=== PATIENT | male | born 1980 | race Caucasian/White ===

== ENCOUNTER 2016-12-24 14:04 | Emergency (ER) | payer BC ==
[~2016-12-24] VITALS: Ht 180.3 cm; Wt 89.7 kg
[~2016-12-24 14:04] MED LIST: ASPCH81X PO; CLOP1TAB15 PO; METO25TA56 PO; NTRGSL/4 UT; XRL10 PO
[2016-12-24 14:10] VITALS: BP 130/88; PULSE 91; TEMP 36.5; O2SAT 97; Ht 180.3 cm; Wt 89.7 kg
[2016-12-24] MEDS ORDERED: PRED50TA PO (14:43)
--- NOTE | 2016-12-24 18:36 | EMERGENCY ROOM VISIT NOTE ---
ED Visit Note First contact with patient: 14:21 Chief Complaint: Hives. History of Present Illness: Mr. Blount is a 36-year-old white male who ambulates into the ED complaining of hives. Patient reports his hives started approximately 2 week ago. He reports he was started on Lipitor and feels that is the culprit of his hives. After he stopped the Lipitor he had resolution of his hives and when he started the Lipitor again the hives returned. He once again stopped the Lipitor in the hives resolved, but he reports the hives started again today without him restarting the Lipitor. Patient reports approximately 4 hours ago he started developing hives over most of his body including his chest, abdomen, groin, anterior neck and lips. Associated with his size he reports she's been extremely itchy. He did take Benadryl shortly after the hives erupted today and feels like all of his hives on his lips, neck and arms have resolved but he is still having some on his chest, abdomen and groin area. He has not identified any aggravating factors related to the hives. He denies any associated symptoms including sensations of throat swelling, shortness of breath, cough, wheezing, abdominal pain, nausea/vomiting. Review of Systems: As noted above in history of present illness. 8 body systems were reviewed and found to be negative as noted above. Past Medical History: Coronary artery disease, unspecified stomach disorder, ankylosing spondylitis, status post stent placement Current Medications: Medications Dose Route/Sig Max Daily Dose Days Date Category Nitrostat (Nitroglycerin) 0.4 Mg Tab 0.4 Mg UT PRN 11/26/16 Reported Lopressor (Metoprolol Tartrate) 25 Mg Tab 12.5 Mg PO BID 11/26/16 Reported Plavix (Clopidogrel Bisulfate) 75 Mg Tab 75 Mg PO DAILY 11/26/16 Reported Aspirin Chewable (Aspirin) 81 Mg Chew 81 Mg PO DAILY 11/26/16 Reported Allergies to Medications: Chantix, questionable Lipitor. Social History: Patient is currently employed; he feels safe in his home environment; he denies tobacco use and admits to alcohol use. Physical Examination: Vital Signs: Date Time Temp Pulse Resp B/P Pulse Ox O2 Delivery O2 Flow Rate FiO2 12/24/16 14:10 36.5 91 20 130/88 97 Room Air GENERAL: 36-year-old female in no acute distress, nontoxic-appearing, afebrile and hemodynamically stable. NEUROLOGICAL: Awake, alert and oriented to person, place and time. Answering questions appropriately and following commands. Normal gait. Good hand eye coordination. No focal motor sensory deficits. SKIN: Warm, dry and pink. Small amount of hives or noted over his chest and abdomen and back but none on his face, neck or upper extremities. HEENT: Atraumatic and normocephalic. No facial swelling or erythema. PERRLA. Sclera white and conjunctiva pink. No drainage from naris. Oral cavity moist and pink. Pharynx is nonerythematous or edematous. Airway is patent. Speech normal. No auditory or auscultatory stridor. No lymphadenopathy. Trachea midline. No jugular venous distention. THORAX: Lungs sounds are clear to auscultation and equal bilaterally with symmetrical chest wall. No wheezing, rales or rhonchi. No increased respiratory effort or rate. No crepitus, tenderness, subcutaneous air or deformities noted. HEART: Regular rate and rhythm. No gallops, rubs or murmurs are appreciated. ABDOMEN: Flat, soft and nontender. Positive bowel sounds in all quadrants. No guarding, rigidity or organomegaly. EXTREMITIES: Moves all extremities well on command and with purpose. All distal neurovascular statuses are intact and equal bilaterally. No calf tenderness or cords. ED Course: Patient is assessed as noted above. Patient reported subjectively he was feeling much better since his last dose of Benadryl. Patient was educated about tonight's findings and instructed on his treatment plan; he verbalizes understanding and agreement with this plan. Clinical Impression: Hives. Possible allergic reaction to Lipitor. Disposition: Patient discharged home in stable condition; prior to departure he subjectively reported he was still having itchy skin but was not having any sensations of throat swelling or shortness of breath/wheezing. Plan: Patient was prescribed prednisone 40 mg once a day for 5 days. Patient was encouraged to use [id number] Benadryl and Zantac until resolution of skin hives and itching. Patient was encouraged to follow-up with his primary care provider; he reports he has an appointment tomorrow morning, for follow-up care and treatment. Patient was encouraged return to the ED for worsening hives, sensations of throat swelling, shortness of breath/wheezing or any new/concerning symptoms.
== END 2016-12-24 14:40 | disposition home or self-care (01) ==
LOC: C.EDB 14:06 → C.EDD 14:40
DX: L50.9 Urticaria, unspecified (principal); I25.10 Atherosclerotic heart disease of native coronary artery without angina pectoris; Z87.19 Personal history of other diseases of the digestive system; Z79.899 Other long term (current) drug therapy; Z88.8 Allergy status to other drugs, medicaments and biological substances

== ENCOUNTER 2022-11-06 08:32 | Observation (INO) ==
[2022-11-06] MEDS ORDERED: fentaNYL citrate 100 MCG/2 ML VIAL IV STA (08:49)
[2022-11-06] MEDS ORDERED: ASPIRIN 81 MG CHEW PO STA (08:49)
--- NOTE | 2022-11-06 08:49 | Emergency Department Note ---
History of Present Illness General Chief complaint: Chest Pain Stated complaint: CHEST PAIN Time Seen by Provider: 11/06/22 08:40 History of Present Illness Maximum Pain Intensity: 6 This is a 42-year-old male with a history of SC in 2017 status post stent placement that presents to the emergency department via private vehicle with complaints of "chest pain". Patient notes substernal chest pain current pain 6/10 that developed this morning around 6 AM. Patient notes that this feels similar but also dissimilar to his previous SC. He notes that he was seen and treated in [place] as well as [place] with [facility] for the SC in 2017. 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 Patient denies any fevers, chills, nausea, vomiting, cough, trauma, injury, radiation of pain. Patient notes that nitro helped a little bit that he took this morning. He notes that he took 1 sublingual nitroglycerin every 5 minutes x 3. He also took baby aspirin this morning. He denies any anticoagulant or other antiplatelet use. Home Medications Medication Instructions Recorded Confirmed Type aspirin 81 mg tablet,delayed 81 mg PO DAILY 11/07/20 11/06/22 History release (David Low Dose Aspirin) Allergies Allergy/AdvReac Type Severity Reaction Status Date / Time atorvastatin [From Lipitor] Allergy Intermediate Hives Verified 11/07/20 15:31 shellfish derived Allergy Intermediate Itchy mouth Verified 11/07/20 15:31 varenicline AdvReac Intermediate "MADE ME Verified 11/07/20 15:31 FEEL AWFUL" Past Med/Surg History Medical History (Updated 11/06/22 @ 10:37 by JUAN JOSE Vera) Ankylosing spondylitis CAD (coronary artery disease) Dyslipidemia History of non-ST elevation myocardial infarction (NSTEMI) Statin intolerance Ulcerative colitis Surgical History H/O cardiac catheterization H/O hand surgery Social History Smoking Status: Former smoker Tobacco Type: Cigarettes Hx Alcohol Use: No Hx Substance Use: No Preferred Language: Irish Communication Ability: Effective Annual Giving Manager Required: No Beliefs That Will Affect Care: None Current Living Situation: Spouse Feels Safe at Home: Yes Assistive Devices: None Review of Systems A total of 10 systems reviewed and were otherwise negative Physical Exam Vital Signs Vital Signs - 24 hr 11/06/22 08:38 11/06/22 08:57 11/06/22 08:49 Temperature 36.4 C L Temperature Source Oral Pulse Rate 100 H 84 73 Pulse Rate from SpO2 Sensor 96 H Respiratory Rate 20 16 Respiratory Effort / Characteristics Non-Labored Spontaneous Respiratory Depth Normal Respiratory Pattern Regular Blood Pressure 122/79 119/90 Blood Pressure Mean 93 99 Pulse Oximetry 98 96 Oxygen Delivery Method Room Air Room Air Sepsis Recent Fever Within 48 Hours No Sepsis New/Unexplained Change in Mental Status N/A Sepsis Action Taken by Nursing No Action Required 11/06/22 08:49 Temperature Temperature Source Pulse Rate Pulse Rate from SpO2 Sensor Respiratory Rate Respiratory Effort / Characteristics Respiratory Depth Respiratory Pattern Blood Pressure Blood Pressure Mean Pulse Oximetry 96 Oxygen Delivery Method Room Air Sepsis Recent Fever Within 48 Hours Sepsis New/Unexplained Change in Mental Status Sepsis Action Taken by Nursing VITAL SIGNS - Vital signs and nursing notes were reviewed. Stable and afebrile. GENERAL - 42-year-old male appearing his stated age who is in no acute distress. Communicates well with provider and answers questions appropriately. SKIN - Without rashes. No meningeal or petechial rash. HEAD - NC/AT. EYES - PERRL with EOMI bilaterally. Sclera anicteric. EARS - No deformities of external structures noted on gross examination bilaterally. NOSE - Midline and without cyanosis. No epistaxis or purulent drainage noted. MOUTH/OROPHARYNX - Without perioral cyanosis. NECK - Neck with FROM. No nuchal rigidity. LUNGS - Chest wall symmetric without accessory muscle use, intercostals retractions, or central cyanosis. Normal vesicular breath sounds CTA B/L. No wheezes, rales, or rhonchi appreciated. CARDIAC - RRR with S1/S2. No murmur, rubs, or gallops appreciated. ABDOMEN - Abdominal contour normal without pulsations or visible masses. BS normoactive all four quadrants. No tenderness, palpable masses, hepatosplenomegaly, or ascites noted. EXTREMITIES - No clubbing or peripheral cyanosis. +5/5 strength noted in UE/LE bilaterally. NEUROLOGIC - Cranial nerves II through XII grossly intact. PSYCH - A&Ox3 and cooperates fully with examiner. Pt is very pleasant and interacts well with examiner. Course Administered Medications Discontinued Medications Aspirin (Aspirin 81 Mg Chew) 243 mg PO NOW STA Stop: 11/06/22 08:50 Last Admin: 11/06/22 08:58 Dose: 243 mg Documented By: JIMENA Fentanyl Citrate (Fentanyl Citrate 100 Mcg/2 Ml Vial) 50 mcg IV NOW STA Stop: 11/06/22 08:50 Last Admin: 11/06/22 08:59 Dose: 50 mcg Documented By: JIMENA Morphine Sulfate (Morphine Sulfate 2 Mg/Ml Carp) 2 mg IV NOW STA Stop: 11/06/22 09:38 Last Admin: 11/06/22 09:45 Dose: 2 mg Documented By: JIMENA Medical Decision Making Laboratory Data 11/06/22 08:55 11/06/22 08:55 Lab Results 11/06/22 11/06/22 11/06/22 Range/Units 08:55 08:55 08:55 WBC 6.10 (4.8-10.8) K/ul RBC 4.54 L (4.70-6.10) M/uL Hgb 14.1 (14.0-18.0) g/dl Hct 40.2 L (42.0-52.0) % MCV 88.5 (80.0-100.0) fL MCH 31.1 (25.0-34.0) pg MCHC 35.1 (32.0-36.0) g/dL RDW Std Deviation 39.5 (36.4-46.3) fL RDW Coeff of Baltazar 12.1 (11.5-14.5) % Plt Count 211 (130-400) K/uL MPV 11.4 (9.4-12.4) fL Immature Gran % (Auto) 0.2 % Neut % (Auto) 52.5 % Lymph % (Auto) 33.3 % Jewell % (Auto) 8.4 % Eos % (Auto) 4.8 % Baso % (Auto) 0.8 % Neut # (Auto) 3.21 (1.40-6.50) K/uL Lymph # (Auto) 2.03 (1.2-3.4) K/uL Jewell # (Auto) 0.51 (0.11-0.59) K/uL Eos # (Auto) 0.29 (0-0.50) K/uL Baso # (Auto) 0.05 (0-0.2) K/uL Immature Gran # (Auto) 0.01 (0.01-0.20) K/uL PT 10.4 (9.0-12.0) Seconds INR 1.0 (0.9-1.1) APTT 28.1 (21.0-31.0) Seconds PTT Ratio 1.0 Sodium 139 (136-145) mmol/L Potassium 3.9 (3.5-5.1) mmol/L Chloride 106 (98-107) mmol/L Carbon Dioxide 25 (21-32) mmol/L Anion Gap 8 (3-11) BUN 20 (6-23) mg/dl Creatinine 0.85 (0.6-1.4) mg/dl Est Cr Clr Drug Dosing 132.5 ml/min Est GFR ( Amer) 123.7 ml/min Est GFR (Non-Af Amer) 106.7 ml/min BUN/Creatinine Ratio 23.5 H (10-20) Glucose 120 H (70-99(Fasting)) mg/dl Calcium 9.7 (8.5-10.1) mg/dl Magnesium 2.1 (1.7-2.4) mg/dl Total Bilirubin 0.4 (0.2-1.0) mg/dl AST 13 (13-39) U/L ALT 13 (7-52) U/L Alkaline Phosphatase 56 (34-104) U/L Troponin I High Sens 3.1 (0-20) pg/ml Total Protein 7.4 (6.0-8.3) gm/dl Albumin 4.6 (3.4-5.0) gm/dl Globulin 2.8 (2.5-4.0) gm/dl Albumin/Globulin Ratio 1.6 (0.9-2) Triglycerides Cholesterol LDL Cholesterol, Calc VLDL Cholesterol, Calc HDL Cholesterol Cholesterol/HDL Ratio Lipase 20 (11-82) U/L TSH (0.300-4.500) uIu/ml SARS-CoV-2, RNA, NAAT (NEGATIVE) 11/06/22 11/06/22 11/06/22 Range/Units 08:55 08:55 09:02 WBC (4.8-10.8) K/ul RBC (4.70-6.10) M/uL Hgb (14.0-18.0) g/dl Hct (42.0-52.0) % MCV (80.0-100.0) fL MCH (25.0-34.0) pg MCHC (32.0-36.0) g/dL RDW Std Deviation (36.4-46.3) fL RDW Coeff of Baltazar (11.5-14.5) % Plt Count (130-400) K/uL MPV (9.4-12.4) fL Immature Gran % (Auto) % Neut % (Auto) % Lymph % (Auto) % Jewell % (Auto) % Eos % (Auto) % Baso % (Auto) % Neut # (Auto) (1.40-6.50) K/uL Lymph # (Auto) (1.2-3.4) K/uL Jewell # (Auto) (0.11-0.59) K/uL Eos # (Auto) (0-0.50) K/uL Baso # (Auto) (0-0.2) K/uL Immature Gran # (Auto) (0.01-0.20) K/uL PT (9.0-12.0) Seconds INR (0.9-1.1) APTT (21.0-31.0) Seconds PTT Ratio Sodium (136-145) mmol/L Potassium (3.5-5.1) mmol/L Chloride (98-107) mmol/L Carbon Dioxide (21-32) mmol/L Anion Gap (3-11) BUN (6-23) mg/dl Creatinine (0.6-1.4) mg/dl Est Cr Clr Drug Dosing ml/min Est GFR ( Amer) ml/min Est GFR (Non-Af Amer) ml/min BUN/Creatinine Ratio (10-20) Glucose (70-99(Fasting)) mg/dl Calcium (8.5-10.1) mg/dl Magnesium (1.7-2.4) mg/dl Total Bilirubin (0.2-1.0) mg/dl AST (13-39) U/L ALT (7-52) U/L Alkaline Phosphatase (34-104) U/L Troponin I High Sens (0-20) pg/ml Total Protein (6.0-8.3) gm/dl Albumin (3.4-5.0) gm/dl Globulin (2.5-4.0) gm/dl Albumin/Globulin Ratio (0.9-2) Triglycerides Cancelled Cholesterol Cancelled LDL Cholesterol, Calc Cancelled VLDL Cholesterol, Calc Cancelled HDL Cholesterol Cancelled Cholesterol/HDL Ratio Cancelled Lipase (11-82) U/L TSH 1.614 (0.300-4.500) uIu/ml SARS-CoV-2, RNA, NAAT NEGATIVE (NEGATIVE) Imaging Data My Impression: Chest x-ray per my interpretation is without acute process. This was compared to previous (11/07/20). Radiologist's Impression: Chest X-Ray 11/06/22 08:50 XR chest 1V portable HISTORY: Intermittent chest pain and tightness. COMPARISON: Chest 11/07/2020. FINDINGS: The lungs are clear. Cardiac silhouette is normal in size. No pleural effusions. No pneumothorax. IMPRESSION: No acute process. ACT 112: Negative or not required by law. Electronically signed by: Ted Brooke M.D. 11/06/2022 9:11 AM MDM Narrative Patient was seen and evaluated as above in room A10. Review was performed of nursing notes and vital signs. I did review pertinent previous visits and patie nt history. After obtaining a thorough history and physical examination the above work up was performed. Patient presents to us today for evaluation of chest pain. He has a history of SC notes in 2017 status post stent placement. Patient notes that he developed chest pain this morning around 6 AM. He notes he has been experiencing intermittent chest pain over the past 3 days but now it is constant. He did take nitroglycerin x3 earlier today with minimal relief of his symptoms. He also the baby aspirin this morning. Options of care were discussed with the patient. IV access was established. Labs are drawn. EKG was obtained. This reveals normal sinus rhythm at a rate of 79 bpm. QTc 435. QRS 94. No ST elevation. This was compared to EKG of November 08, 2020. No significant change was found. I did order the patient aspirin to complement the 81 mg he took prior to arrival as well as IV fentanyl. Patient did have some chest pain relief with the fentanyl but it was of short duration. Decision was made to then provide IV morphine. He responded well to this. Pain was very minimal. With the patient's cardiac history in the setting of chest pain at this time I do believe that further evaluation and management in the inpatient setting is warranted. Case discussed with the hospitalist service. Patient amenable to plan of care. Please refer to further documentation regarding his stay. Low suspicion for dissection/PE at this time. Case was discussed with the attending physician. An order was placed for continuous cardiac monitoring. The monitor shows a rate of 75 with sinus rhythm. GCS: 15 In the evaluation and treatment of this patient, the following differential diagnoses were considered: SC, ASC, Dysrhythmia, Angina, Mediastinitis, GERD, Esophagitis, PE, Pneumonia, Bronchitis, Costochondritis, Rib Fracture, Zoster. Impression & Plan Chest pain Discharge Plan Visit Data Chief Complaint: Chest Pain Stated Complaint: CHEST PAIN ED Provider: Chepe Simpson ED Midlevel Provider: Bandar Bazzi Discharge Problem: Chest pain Patient Disposition: Admitted As Inpatient Condition: Good Forms Stand Alone Forms: [facility] SeeMe Prescriptions Prescriptions: No Action aspirin [David Low Dose Aspirin] 81 mg Tablet,Delayed Release (Dr/Ec) 81 mg PO DAILY Referrals Referrals: Darlin Breaux DO [Outside Practitioners] -
--- NOTE | 2022-11-06 09:12 | XRay Report ---
XR chest 1V portable HISTORY: Intermittent chest pain and tightness. COMPARISON: Chest 11/07/2020. FINDINGS: The lungs are clear. Cardiac silhouette is normal in size. No pleural effusions. No pneumot horax. IMPRESSION: No acute process. ACT 112: Negative or not required by law. Electronically signed by: Ted Brooke M.D. 11/06/2022 9:11 AM
[2022-11-06 09:23] LABS: Basophils # (auto) 0.05 K/uL (0-0.2); Basophils % (auto) 0.8 %; Eosinophils # (auto) 0.29 K/uL (0-0.50); Eosinophils % (auto) 4.8 %; Hematocrit (blood only) 40.2 % (42.0-52.0); Hemoglobin 14.1 g/dl (14.0-18.0); Immature Granulocytes # (auto) 0.01 K/uL (0.01-0.20); Immature Granulocytes % (auto) 0.2 %; Lymphocytes # (auto) 2.03 K/uL (1.2-3.4); Lymphocytes % (auto) 33.3 %; Mean Corpuscular Hemoglobin 31.1 pg (25.0-34.0); Mean Corpuscular Hgb Conc 35.1 g/dL (32.0-36.0); Mean Corpuscular Volume 88.5 fL (80.0-100.0); Mean Platelet Volume 11.4 fL (9.4-12.4); Monocytes # (auto) 0.51 K/uL (0.11-0.59); Monocytes % (auto) 8.4 %; Neutrophils # (auto) 3.21 K/uL (1.40-6.50); Neutrophils % (auto) 52.5 %; Platelet Count 211 K/uL (130-400); RDW Coefficient of Variation 12.1 % (11.5-14.5); RDW Standard Deviation 39.5 fL (36.4-46.3); Red Blood Count 4.54 M/uL (4.70-6.10)
[2022-11-06] MEDS ORDERED: MoRPHine SULFATE 2 MG/ML CARP IV STA (09:37)
[2022-11-06 09:39] LABS: Alanine Aminotransferase 13 U/L (7-52); Albumin Globulin Ratio 1.6 (0.9-2); Albumin Level 4.6 gm/dl (3.4-5.0); Alkaline Phosphatase 56 U/L (34-104); Anion Gap 8 (3-11); Aspartate Aminotransferase 13 U/L (13-39); BUN Creatinine Ratio 23.5 (10-20); Bilirubin,Total 0.4 mg/dl (0.2-1.0); Blood Urea Nitrogen 20 mg/dl (6-23); Calcium 9.7 mg/dl (8.5-10.1); Carbon Dioxide 25 mmol/L (21-32); Chloride 106 mmol/L (98-107); Creatinine Clr Calc Pharmacy 132.5 ml/min; Est GFR (African American) 123.7 ml/min; Est GFR (Non-African American) 106.7 ml/min; Globulin 2.8 gm/dl (2.5-4.0); Glucose 120 mg/dl (70-99(Fasting)); Lipase 20 U/L (11-82); Magnesium 2.1 mg/dl (1.7-2.4); Potassium 3.9 mmol/L (3.5-5.1); Sodium 139 mmol/L (136-145); Total Protein 7.4 gm/dl (6.0-8.3)
[2022-11-06 09:45] LABS: Troponin I High Sensitivity 3.1 pg/ml (0-20)
[2022-11-06 09:51] LABS: Partial Thromboplastin Time 28.1 Seconds (21.0-31.0); Prothrombin Time 10.4 Seconds (9.0-12.0)
[2022-11-06] MEDS ORDERED: ACETAMINOPHEN 325 MG TAB PO PRN (10:30)
[2022-11-06] MEDS ORDERED: ONDANSETRON INJ 2 MG/ML 2 ML VIAL IV PRN (10:30)
[2022-11-06] MEDS ORDERED: MAGNESIUM HYDROXIDE SUSP 30 ML UDC PO PRN (10:30)
[2022-11-06] MEDS ORDERED: ALUMINUM/MAGNESIUM SUSP 30 ML UDC PO PRN (10:30)
[2022-11-06] MEDS ORDERED: POLYETHYLENE (MIRALAX) 17 GM PACK PO PRN (10:30)
--- NOTE | 2022-11-06 10:38 | History & Physical Report ---
Date of Service November 06, 2022 Assessment & Plan (1) Chest pain: (2) CAD (coronary artery disease): (3) History of non-ST elevation myocardial infarction (NSTEMI): (4) Dyslipidemia: (5) Ulcerative colitis: Plan 42 y/o with intermittent chest pain and reported difficulty with word finding. H?O NSTEMI in 2017 with CHANDU x3. H/O statin intolerance with myalgia and rashes. Only home med is baby ASA. Chest Pain: CAD: History of NSTEMI: -2017 CHANDU x 3 to RCA. On baby ASA at home; continue -Normotensive in ED -Follows with [facility] Cards; Dr. Gonzalez Q 6 months -CXR negative -Initial troponin negative; 3.1; will trend. -No ischemia on EKF; recheck EKG in AM -Stress ECHO 2020 on last admit normal -Repeat ECHO -Morphine PRN for pain control -Routine Cards consult -NPO in the event of cath (last had a protein shake this AM) Reported Aphagia: -Expressive and receptive over past 24 hours. -MRI ordered to r/o TIA/CVA -Q4 neuro checks -Neuro exam negative; consider Neuro consult if any exam changes or abnormalities on MRI Dyslipidemia: Statin Intolerance: -Does not take any routine medications; History of statin and zetia intolerance due to myalgias and rash -Lipid panel 2020: total Cholesterol 300 -Repeat lipid panel today Disposition: PCP: Clay Pena PA-C Code Status: Full Code VTE Prophylaxis: SQ Heparin I spent a total of 87 minutes coordinating, documenting, and providing care for this patient excluding time spent in the performance of separately billed services. All of the aforementioned completed while collaborating with the assigned attending physician for a full treatment plan. Please see their addendum for further details. History of Present Illness Chief Complaint: chest pain Primary Care Provider: Clay Pena Mr. Blount is a 42 year old male who presented to the [facility] today with complaints of intermittent chest pain that started at 0600 today without waking him from his sleep. He describes it as sharp, tight pain in his anterior chest. He does describe that at times it feels that his heartbeat is not as rhythmic as usual with periods of fluttering. He stated that over the past day or 2 he has noticed some difficulty with word finding both expressively and receptively. He took SL Nitro every 5 minutes x3 doses prior to coming to the ED without relief. In the ED, baby asa was given and he was given a low dose of Fentanyl and Morphine. No ischemic changes noted on EKG. Chest x-ray negative for acute cardiac or pulmonary disease. Last stress test was 08/27 in [place] patient reports normal. Stress echo reviewed in chart from November 2020 which was normal. He has a PMH that includes a NSTEMI in 2017 s/p CHANDU x 3 to RCA, dyslipidemia with statin intolerance, history of tobacco use, ulcerative colitis, and ankylosing spondylitis. Edgardo describes the pain he is having as similar to his NSTEMI in 2017. He denies any close sick contacts recently. He describes that his chest pain has been coming and going ever since he has had his stents placed in 2017. Patient only home medication is a baby aspirin. He does follow with Dr. Gonzalez, Cardiology, in [place] every 6 months. Patient reports he quit smoking more than 5 years ago and does not use alcohol or recreational drug use. Patient does have a medical marijuana card that he does not utilize. Patient denies headache, double or blurry vision, auditory changes, abdominal pain, shortness of breath, reflux symptoms, recent falls, recent trauma. Pt reports intermittent dizziness with ambulation at the start of his day. On exam, he does have anterior chest pain, but not physically reducible on exam. Patient will be admitted for further evaluation and management. Please see A/p for further details. Allergies Allergy/AdvReac Type Severity Reaction Status Date / Time atorvastatin [From Lipitor] Allergy Intermediate Hives Verified 11/07/20 15:31 shellfish derived Allergy Intermediate Itchy mouth Verified 11/07/20 15:31 varenicline AdvReac Intermediate "MADE ME Verified 11/07/20 15:31 FEEL AWFUL" Home Medications Medication Instructions Recorded Confirmed Type aspirin 81 mg tablet,delayed 81 mg PO DAILY 11/07/20 11/06/22 History release (David Low Dose Aspirin) Past Med/Surg History Medical History Ankylosing spondylitis CAD (coronary artery disease) Dyslipidemia History of non-ST elevation myocardial infarction (NSTEMI) Statin intolerance Ulcerative colitis Surgical History H/O cardiac catheterization H/O hand surgery Social History Smoking Status: Former smoker Tobacco Type: Cigarettes Second Hand Exposure: No; Do You Dip or Chew Tobacco: No; Tobacco Cessation Education Requested by Patient: No Hx Alcohol Use: No Hx Substance Use: No Preferred Language: Hebrew Communication Ability: Effective Pipe Inspector Required: No Beliefs That Will Affect Care: None Current Living Situation: Spouse Current Living Situation Comment: home with family Other Information That Helps Us Care for You: No Feels Safe at Home: Yes Assistive Devices: None Review of Systems Review of Systems: Neuro: (-) Falls, trauma, slurred speech HEENT: (-) COLLINS, (+) dizziness, expressive and receptive aphagia noted by patient prior to arrival inED. (-) visual or auditory changes CV: (-) CP, palpitations, swelling Resp: (-) SOB GI: (-) appetite changes, N/V/D, bowel changes : (-) urinary changes Skin: (+) rash B/L interior thigh that has resolved Psych: (-) anxiety, depression Physical Exam Physical Exam: Neuro: AAOx4, PERRLA, no aphagia, memory changes, CNII-XII grossly intact HEENT: head normocephalic, moist mucus membranes CV: S1/S2, (-) M/G/R, (-) edema, cap refill < 3 seconds Resp: Lungs CTA in all howard. On RA GI: Abdomen S/NT/ND, Ax4 bowel sounds, (-) CVA tenderness Musculoskeletal: 5/5 B/L UE strength, 5/5 B/L LE strength. No gait disturbance Skin: (-) rashes , (-) erythema. Psych: euthymic mood Results & Data Results & Data ([facility]) Vital Signs (Past 12 Hours) Vital Signs Temp Pulse Resp BP Pulse Ox O2 Del Method 11/06/22 08:49 96 Room Air 11/06/22 08:49 73 16 119/90 96 Room Air 11/06/22 08:57 84 11/06/22 08:38 36.4 C L 100 H 20 122/79 98 Room Air Laboratory Results Short CBC 11/06/22 Range/Units 08:55 WBC 6.10 (4.8-10.8) K/ul Hgb 14.1 (14.0-18.0) g/dl Hct 40.2 L (42.0-52.0) % Plt Count 211 (130-400) K/uL BMP 11/06/22 08:55 Sodium 139 Potassium 3.9 Chloride 106 Carbon Dioxide 25 BUN 20 Creatinine 0.85 Glucose 120 H Calcium 9.7 Liver Function 11/06/22 Range/Units 08:55 Total Bilirubin 0.4 (0.2-1.0) mg/dl AST 13 (13-39) U/L ALT 13 (7-52) U/L Alkaline Phosphatase 56 (34-104) U/L Albumin 4.6 (3.4-5.0) gm/dl Diagnostic Findings Chest X-Ray 11/06/22 08:50 XR chest 1V portable HISTORY: Intermittent chest pain and tightness. COMPARISON: Chest 11/07/2020. FINDINGS: The lungs are clear. Cardiac silhouette is normal in size. No pleural effusions. No pneumothorax. IMPRESSION: No acute process. ACT 112: Negative or not required by law. Electronically signed by: Ted Brooke M.D. 11/06/2022 9:11 AM Code Status & VTE Plan Code Status Full Code in the event of cardiac or respiratory arrest VTE Prophylaxis Plan VTE Prophylaxis will be ordered: Yes Supervising Physician Co-Signing Physician Notes Patient is a 42 yr male with history of coronary artery disease, hyperlipidemia and no other significant past medical history presents with history of chest pain, retrosternal, sharp stabbing kind of pain nonradiating unrelieved with nitroglycerin. Patient admits to going through a lot of stress lately. Also reports transient word finding difficulty yesterday. Currently denies any associated nausea, vomiting, dyspnea, dizziness, slurred speech, facial deformity, change in vision, focal weakness. Please review HPI for complete details of presentation. Blood work and imaging studies reviewed. Initial troponins negative. EKG showed no signs of acute ischemia. On exam patient is well-built and nourished, no apparent distress, normocephalic/atraumatic, EOMI, normal breath sounds, clear to auscultation, S1-S2, no murmur, no pedal edema, abdomen soft, nontender, normal bowel sounds, alert, awake, oriented oriented, grossly no focal deficits,+ multiple tattoos present. Patient is admitted for management of chest pain rule out ACS and possible TIA. Resting echo pending. Appreciate cardiology input. Will need stress test likely prior to discharge. Continue aspirin. Given history of statin intolerance, currently patient not on any statin. Will benefit from Repatha. Will obtain MRI, carotid Doppler to rule out any acute CVA. TIA symptoms likely secondary to acute stress. Offered medications to help with anxiety, currently patient not interested. We will consider further neurological work-up if patient has recurrence of symptoms. I personally reviewed the record. Patient is interviewed and examined at bedside. Patient's care is coordinated with Lori IN[facility]. Please refer to the documentation above for details of patient's presentation and for discussion of other issues.
[2022-11-06 11:42] LABS: Cholesterol 270 mg/dl (0-200); HDL Cholesterol 35 mg/dl; Triglycerides 482 mg/dl (0-150)
[2022-11-06 11:49] LABS: Chol HDL Ratio 7.7 (0-5)
--- NOTE | 2022-11-06 11:51 | Electrocardiogram Report ---
Test Reason : Blood Pressure : / mmHG Vent. Rate : 079 BPM Atrial Rate : 079 BPM P-R Int : 166 ms QRS Dur : 094 ms QT Int : 380 ms P-R-T Axes : 068 063 042 degrees QTc Int : 435 ms Poor data quality, interpretation may be adversely affected Normal sinus rhythm Normal ECG When compared with ECG of 08-NOV-2020 07:16, No significant change was found Confirmed by Mo Bills ([id number]) on 11/06/2022 11:51:08 AM Referred By: REFERRED SELF Confirmed By:Mo Bills
[2022-11-06] MEDS: MoRPHine SULFATE 2 MG/ML CARP IV PRN ×2 (13:09→17:09)
[2022-11-06 13:12] LABS: Estimated Average Glucose 103 mg/dl; Hemoglobin A1C 5.2 % (4.5-5.6)
--- NOTE | 2022-11-06 13:51 | XRay Report ---
XR orbits for MRI HISTORY: 42 years-old Male Screening for foreign body for MRI COMPARISON: None TECHNIQUE: 3 views of the orbits FINDINGS: No opaque foreign body of the orbits identified. No acute facial bone fracture is seen. The paranasal sinuses and mastoid air cells appear generally clear. IMPRESSION: No opaque foreign body of the orbits identified. ACT 112: Negative or not required by law. The above report was generated using voice recognition software. It may contain grammatical, syntax o r spelling errors. Electronically signed by: Edgardo Negrete M.D. 11/06/2022 1:49 PM
[2022-11-06] MEDS ORDERED: GADOBUTROL 65ML VIAL IV ONE (14:51)
--- NOTE | 2022-11-06 15:02 | Magnetic Resonance Report ---
MR brain wo/w con CLINICAL HISTORY: expressive aphagia TECHNIQUE: Multiplanar and multisequence MR images of the brain were obtained prior to and following administration of gadolinium contrast. Comparison: None available at the time of this dictation. FINDINGS: No abnormal restricted diffusion is identified. The white matter is unremarkable. The ventricular sys tem is normal in appearance. No mass or abnormal enhancement is seen. There is no mass effect or midl ine shift. There is no evidence of acute intraparenchymal hemorrhage. No extra axial fluid collection s are seen. The corpus callosum, pituitary gland, and cerebellar tonsils appear grossly unremarkable. Flow voids of the major intracranial arterial vessels are identified. The imaged portions of the para nasal sinuses, mastoid air cells, and orbits are unremarkable. IMPRESSION: No acute abnormalities. ACT 112: Negative or not required by law. Electronically signed by: Ethan Kennedy M.D. 11/06/2022 3:00 PM
[2022-11-06 15:30] LABS: Appearance Urine Clear (Clear); Bilirubin Urine Negative (Negative); Blood Urine Negative (Negative); Color Urine Yellow; Glucose Urine UA Negative (Negative); Ketones Urine Negative (Negative); Leukocyte Esterase Urine Negative (Negative); Nitrite Urine Negative (Negative); Protein Urine Negative (Negative); Specific Gravity Urine 1.029 (1.000-1.030); Urobilinogen Urine Negative (Negative); pH Urine 6.5 (4.5-7.5)
--- NOTE | 2022-11-06 15:41 | Cardiology Consultation ---
Date of Consultation November 06, 2022 Assessment & Plan (1) Familial hypercholesterolemia: (2) CAD (coronary artery disease): (3) Stented coronary artery: (4) Chest pain: (5) Statin intolerance: Plan Thus far the patient's high-sensitivity troponins are negative. Given his history of prior coronary stents, the patient should have a stress test either prior to leaving the hospital or soon after as an outpatient. 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 A direct LDL cholesterol is pending. The patient most likely would benefit from a PCSK9 inhibitor as well as genetic testing for one of the FH variables. This work-up can be done as an outpatient. History of Present Illness Attending Physician: Nj Covarrubias MD History of Present Illness This is a 42-year-old male patient who at the age of 37 received coronary stents within the right coronary artery. The patient is not a good historian in regard to the events surrounding his PCI. He states that he had a colonoscopy that morning and then later on did not feel well and presented to the hospital where he was taken to the cardiac catheterization lab and received his stents. This work was done at [facility] and the patient is followed by Dr. Reyes. The patient also has a history of ulcerative colitis and possible ankylosing spondylitis however, he has not on any medications and denies any recent problems. Over the past week, the patient has noticed intermittent chest pain which is not activity related. He has taken sublingual nitroglycerin with relief and then the morning of admission he took 3 sublingual nitroglycerin without relief and presented to the hospital. Thus far, the patient has had 2 sets of high-sensitivity troponins that are negative. His EKG shows no acute changes. It should also be noted that the patient was having difficulty with aphasia earlier in the week. He has had a MRI of the brain after admission that fails to show any CV disease. The patient has significantly elevated cholesterol in the range for familial hypercholesterolemia and is statin intolerant. Allergies Allergy/AdvReac Type Severity Reaction Status Date / Time atorvastatin [From Lipitor] Allergy Intermediate Hives Verified 11/07/20 15:31 shellfish derived Allergy Intermediate Itchy mouth Verified 11/07/20 15:31 varenicline AdvReac Intermediate "MADE ME Verified 11/07/20 15:31 FEEL AWFUL" Home Medications Medication Instructions Recorded Confirmed Type aspirin 81 mg tablet,delayed 81 mg PO DAILY 03/04/21 03/03/23 History release (David Low Dose Aspirin) Patient History Medical History Ankylosing spondylitis CAD (coronary artery disease) Dyslipidemia History of non-ST elevation myocardial infarction (NSTEMI) Statin intolerance Ulcerative colitis Surgical History H/O cardiac catheterization H/O hand surgery Social History Smoking Status: Former smoker Tobacco Type: Cigarettes Hx Alcohol Use: No Hx Substance Use: No Preferred Language: Indonesian Communication Ability: Effective Residential Subcontractor Required: No Beliefs That Will Affect Care: None Current Living Situation: Spouse Feels Safe at Home: Yes Assistive Devices: None Review of Systems Review of Systems: Review of Systems: See HPI for pertinent positives. All other 10 point review of systems are negative. Physical Exam Physical Exam: General: no acute distress and stated age Head: normocephalic, no masses, lesions, tenderness or abnormalities Eyes: conjunctiva are pink and non-injected, sclera clear Neck: supple, no adenopathy, no bruits, normal jugular venous pulse, no hepatojugular reflux Chest: normal shape and normal respiratory effort Lungs: clear to auscultation and percussion Cardiac Exam: - regular rate & rhythm, no murmurs gallops or rubs - normal S1, normal S2 Pulses: 2(+) throughout Abdomen: abdomen soft, non-tender, no abnormal masses and no hepatosplenomegaly Musculoskeletal: no gait disturbance, no joint inflammation, no deforming arthritis Extremities: no edema and no cyanosis Neuro: grossly normal exam Results & Data ([facility]) Vital Signs (Past 12 Hours) Vital Signs Temp Pulse Pulse Resp BP BP Pulse Ox 11/06/22 15:03 37.1 C 79 16 132/90 96 11/06/22 08:49 96 11/06/22 08:49 73 16 119/90 96 11/06/22 08:57 84 11/06/22 08:38 36.4 C L 100 H 20 122/79 98 O2 Del Method 11/06/22 15:03 Room Air 11/06/22 08:49 Room Air 11/06/22 08:49 Room Air 11/06/22 08:57 11/06/22 08:38 Room Air Laboratory Results Laboratory Results - last 24 hr 11/06/22 11/06/22 11/06/22 08:55 08:55 08:55 WBC 6.10 RBC 4.54 L Hgb 14.1 Hct 40.2 L MCV 88.5 MCH 31.1 MCHC 35.1 RDW Std Deviation 39.5 RDW Coeff of [place] 12.1 Plt Count 211 MPV 11.4 Immature Gran % (Auto) 0.2 Neut % (Auto) 52.5 Lymph % (Auto) 33.3 [place] % (Auto) 8.4 Eos % (Auto) 4.8 Baso % (Auto) 0.8 Neut # (Auto) 3.21 Lymph # (Auto) 2.03 [place] # (Auto) 0.51 Eos # (Auto) 0.29 Baso # (Auto) 0.05 Immature Gran # (Auto) 0.01 PT 10.4 INR 1.0 APTT 28.1 PTT Ratio 1.0 Sodium 139 Potassium 3.9 Chloride 106 Carbon Dioxide 25 Anion Gap 8 BUN 20 Creatinine 0.85 Est Cr Clr Drug Dosing 132.5 Est GFR ( Amer) 123.7 Est GFR (Non-Af Amer) 106.7 BUN/Creatinine Ratio 23.5 H Glucose 120 H Estimat Average Glucose Hemoglobin A1c Calcium 9.7 Magnesium 2.1 Total Bilirubin 0.4 AST 13 ALT 13 Alkaline Phosphatase 56 Troponin I High Sens 3.1 Total Protein 7.4 Albumin 4.6 Globulin 2.8 Albumin/Globulin Ratio 1.6 Triglycerides 482 H Cholesterol 270 H LDL Cholesterol, Calc TNP VLDL Cholesterol, Calc TNP HDL Cholesterol 35 Cholesterol/HDL Ratio 7.7 H Lipase 20 TSH Urine Color Urine Appearance Urine pH Ur Specific [place] Urine Protein Urine Glucose (UA) Urine Ketones Urine Blood Urine Nitrite Urine Bilirubin Urine Urobilinogen Ur Leukocyte Esterase SARS-CoV-2, RNA, NAAT 11/06/22 11/06/22 11/06/22 08:55 08:55 09:02 WBC RBC Hgb Hct MCV MCH MCHC RDW Std Deviation RDW Coeff of [place] Plt Count MPV Immature Gran % (Auto) Neut % (Auto) Lymph % (Auto) [place] % (Auto) Eos % (Auto) Baso % (Auto) Neut # (Auto) Lymph # (Auto) [place] # (Auto) Eos # (Auto) Baso # (Auto) Immature Gran # (Auto) PT INR APTT PTT Ratio Sodium Potassium Chloride Carbon Dioxide Anion Gap BUN Creatinine Est Cr Clr Drug Dosing Est GFR ( Amer) Est GFR (Non-Af Amer) BUN/Creatinine Ratio Glucose Estimat Average Glucose Hemoglobin A1c Calcium Magnesium Total Bilirubin AST ALT Alkaline Phosphatase Troponin I High Sens Total Protein Albumin Globulin Albumin/Globulin Ratio Triglycerides Cancelled Cholesterol Cancelled LDL Cholesterol, Calc Cancelled VLDL Cholesterol, Calc Cancelled HDL Cholesterol Cancelled Cholesterol/HDL Ratio Cancelled Lipase TSH 1.614 Urine Color Urine Appearance Urine pH Ur Specific [place] Urine Protein Urine Glucose (UA) Urine Ketones Urine Blood Urine Nitrite Urine Bilirubin Urine Urobilinogen Ur Leukocyte Esterase SARS-CoV-2, RNA, NAAT NEGATIVE 11/06/22 11/06/22 11/06/22 12:18 12:18 15:20 WBC RBC Hgb Hct MCV MCH MCHC RDW Std Deviation RDW Coeff of [place] Plt Count MPV Immature Gran % (Auto) Neut % (Auto) Lymph % (Auto) [place] % (Auto) Eos % (Auto) Baso % (Auto) Neut # (Auto) Lymph # (Auto) [place] # (Auto) Eos # (Auto) Baso # (Auto) Immature Gran # (Auto) PT INR APTT PTT Ratio Sodium Potassium Chloride Carbon Dioxide Anion Gap BUN Creatinine Est Cr Clr Drug Dosing Est GFR ( Amer) Est GFR (Non-Af Amer) BUN/Creatinine Ratio Glucose Estimat Average Glucose 103 Hemoglobin A1c 5.2 Calcium Magnesium Total Bilirubin AST ALT Alkaline Phosphatase Troponin I High Sens 3.2 Total Protein Albumin Globulin Albumin/Globulin Ratio Triglycerides Cholesterol LDL Cholesterol, Calc VLDL Cholesterol, Calc HDL Cholesterol Cholesterol/HDL Ratio Lipase TSH Urine Color Yellow Urine Appearance Clear Urine pH 6.5 Ur Specific [place] 1.029 Urine Protein Negative Urine Glucose (UA) Negative Urine Ketones Negative Urine Blood Negative Urine Nitrite Negative Urine Bilirubin Negative Urine Urobilinogen Negative Ur Leukocyte Esterase Negative SARS-CoV-2, RNA, NAAT Medications Administered Current Inpatient Medications Acetaminophen (Acetaminophen 325 Mg Tab) 650 mg PO Q4H PRN PRN Reason: Pain or Fever Stop: 12/06/22 10:29 Al Hydrox/Mg Hydrox/Simethicone (Aluminum/Magnesium Susp 30 Ml Udc) 15 ml PO Q4H PRN PRN Reason: Dyspepsia Stop: 12/06/22 10:29 Aspirin (Aspirin 81 Mg Ectab) 81 mg PO DAILY ANDER Stop: 12/07/22 08:59 Heparin Sodium (Porcine) (Heparin Sod 5,000 Unit/0.5 Ml Vial) 5,000 units SQ Q12 ANDER Stop: 12/06/22 20:59 Magnesium Hydroxide (Magnesium Hydroxide Susp 30 Ml Udc) 30 ml PO Q12H PRN PRN Reason: Constipation Stop: 12/06/22 10:29 Morphine Sulfate (Morphine Sulfate 2 Mg/Ml Carp) 1 mg IV Q4H PRN PRN Reason: Pain Stop: 11/20/22 11:25 Last Admin: 11/06/22 13:09 Dose: 1 mg Ondansetron HCl (Ondansetron Inj 2 Mg/Ml 2 Ml Vial) 4 mg IV Q6H PRN PRN Reason: Nausea Stop: 12/06/22 10:29 Polyethylene Glycol (Polyethylene (Miralax) 17 Gm Pack) 17 gm PO DAILY PRN PRN Reason: Constipation Stop: 12/06/22 10:29
--- NOTE | 2022-11-06 17:24 | Ultrasound Report ---
ULTRASOUND OF THE CAROTID ARTERIES CLINICAL HISTORY: aphagia/chest pain COMPARISON: None available at the time of this dictation. TECHNIQUE: Real-time, grayscale, and color Doppler sonography of the carotid arteries is performed. I mages are reviewed in the transverse and longitudinal planes. FINDINGS: The carotid arteries are patent bilaterally and demonstrate antegrade flow. There is no atherosclerot ic plaque on the right and no atherosclerotic plaque on the left. Normal doppler arterial waveforms a re seen throughout. Velocity measurements are listed below. Common carotid peak systolic velocity (cm/sec): RIGHT: 93 LEFT: 120 ICA peak systolic velocity (cm/sec): RIGHT: 68 LEFT: 81 ICA/CC peak systolic ratio: RIGHT: 0.7 LEFT: 0.7 Antegrade flow was shown in the vertebral arteries. The external carotid arteries are patent. IMPRESSION: 1. There is no sonographic evidence of hemodynamically significant stenosis in the right or left car otid arterial system. 2. Antegrade flow is shown in the vertebral arteries. Society of Radiologists in Ultrasound consensus guidelines: Normal: ICA PSV is <125 cm/sec and no plaque or intimal thickening is visible sonographically additional criteria include ICA/CCA PSV ratio <2.0 and ICA EDV <40 cm/sec <50% ICA stenosis: ICA PSV is <125 cm/sec and plaque or intimal thickening is visible sonographically additional criteria include ICA/CCA PSV ratio <2.0 and ICA EDV <40 cm/sec 50-69% ICA stenosis: ICA PSV is 125-230 cm/sec and plaque is visible sonographically additional criteria include ICA/CCA PSV ratio of 2.0-4.0 and ICA EDV of 40-100 cm/sec ?70% ICA stenosis but less than near occlusion: ICA PSV is >230 cm/sec and visible plaque and luminal narrowing are seen at mckay-scale and color Dopp ler ultrasound (the higher the Doppler parameters lie above the threshold of 230 cm/sec, the greater the likelihood of severe disease) additional criteria include ICA/CCA PSV ratio >4 and ICA EDV >100 cm/sec ACT 112: Negative or not required by law. Electronically signed by: Ethan Kennedy M.D. 11/06/2022 5:22 PM
[2022-11-06] MEDS: HEPARIN SOD 5,000 UNIT/0.5 ML VIAL SQ SCH (22:02)
[2022-11-07 06:30] LABS: Hematocrit (blood only) 39.4 % (42.0-52.0); Hemoglobin 13.6 g/dl (14.0-18.0); Mean Corpuscular Hemoglobin 30.7 pg (25.0-34.0); Mean Corpuscular Hgb Conc 34.5 g/dL (32.0-36.0); Mean Corpuscular Volume 88.9 fL (80.0-100.0); Mean Platelet Volume 11.5 fL (9.4-12.4); Platelet Count 213 K/uL (130-400); RDW Coefficient of Variation 12.1 % (11.5-14.5); RDW Standard Deviation 39.6 fL (36.4-46.3); Red Blood Count 4.43 M/uL (4.70-6.10); White Blood Count 6.04 K/ul (4.8-10.8)
--- NOTE | 2022-11-07 07:44 | Electrocardiogram Report ---
Test Reason : Blood Pressure : / mmHG Vent. Rate : 074 BPM Atrial Rate : 074 BPM P-R Int : 164 ms QRS Dur : 094 ms QT Int : 388 ms P-R-T Axes : 079 080 073 degrees QTc Int : 430 ms Normal sinus rhythm Incomplete right bundle branch block Borderline ECG When compared with ECG of 06-NOV-2022 08:42, Incomplete right bundle branch block is now Present Confirmed by Rojelio Mary ([id number]) on 11/07/2022 7:43:59 AM Referred By: REFERRED SELF Confirmed By:Rojelio Mary
[2022-11-07 08:28] VITALS: BP 128/79; TEMP 97.5; O2SAT 97
[2022-11-07 08:41] LABS: HDL Cholesterol 29 mg/dl; LDL Cholesterol Direct 146 mg/dl
[2022-11-07] MEDS: HEPARIN SOD 5,000 UNIT/0.5 ML VIAL SQ SCH (08:48)
[2022-11-07] MEDS ORDERED: ASPIRIN 81 MG ECTAB PO SCH (09:00)
[2022-11-07 09:42] LABS: BUN Creatinine Ratio 25.6 (10-20); Calcium 9.3 mg/dl (8.5-10.1); Creatinine Clr Calc Pharmacy 129.6 ml/min; Est GFR (African American) 123.1 ml/min; Est GFR (Non-African American) 106.2 ml/min; Magnesium 2.1 mg/dl (1.7-2.4); Potassium 3.9 mmol/L (3.5-5.1)
--- NOTE | 2022-11-07 10:50 | Cardiology Progress Note ---
Date of Service November 07, 2022 Assessment & Plan (1) Chest pain: Plan: -HS troponin negative x 2, EKG yesterday and again today without acute ischemic changes -Resting echo with no wall motion abnormalities. -Pt underwent DEB this am, that was negative for inducible ischemia, no symptoms suggestive of angina induced, high workload achieved. -Presenting symptoms are unlikely to be due to occlusive CAD. -Pt with negative stress echo. Stable from cardiology perspective for discharge to home. (2) CAD (coronary artery disease): Plan: -Pt with history of NSTEMI in 11/2016.Initially presented to [facility], cardiac catheterization reveals complete toal occlusion of the RCA with unsuccessful PCI at that time he was therefore referred to [facility] and underwent successful PCI CHANDU placement -continue aspirin 81 mg daily, PRN SL nitroglycerin. -He is on no other medications, and his BP is well controlled at baseline (3) Dyslipidemia: Plan: -LDL 146 mg/dl -Pt has longstanding history of intolerance to several trials of statin therapy and intolerant to Zetia. -He states his primary facilities clerk prescribed at [employer] agent, but he has yet to pick it up and does not know how to obtain the medication. -I recommended he calls Dr Steiner's office on Wednesday to follow this up, as this medication will need prior authorization and it is not possible to initiate therapy as a hospital discharge medication. DISPOSITION: I offered for patient to follow up with our practice. He politely declines and would like to follow up with Dr Steiner. Admission and Anticipated Discharge Date Admission Date: November 06, 2022 Subjective Patient seen in cardiology follow up. No additional chest pain overnight last night or thus far today. Review of Systems Review of Systems: All systems reviewed & are unremarkable except as noted in HPI & below Physical Exam Physical Exam: Temp Pulse Resp BP Pulse Ox O2 Del Method 36.4 C L 66 18 128/79 97 Room Air 11/07/22 08:27 11/07/22 08:27 11/07/22 08:27 11/07/22 08:27 11/07/22 08:27 11/07/22 08:27 Constitutional: WD/WN, vitals as above Respiratory: normal respiratory effort, lungs clear to auscultation Cardiovascular: RRR, no murmur, no edema Neurologic: PERRL, EOMI, accommodation nl, no face palsy, no dysarthria Results & Data ([facility]) Vital Signs (Past 12 Hours) Vital Signs Temp Pulse Pulse Resp BP Pulse Ox O2 Del Method 11/07/22 08:27 36.4 C L 66 18 128/79 97 Room Air 11/07/22 03:41 37 C 77 16 104/69 95 Room Air 11/07/22 00:23 72 11/06/22 23:00 36.9 C 67 18 107/73 96 Room Air Laboratory Results Cardiac Enzymes 11/06/22 Range/Units 12:18 Troponin I High Sens 3.2 (0-20) pg/ml Lipids 11/06/22 11/06/22 11/07/22 Range/Units 08:55 08:55 05:28 Triglycerides 482 H Cancelled (0-150) mg/dl Cholesterol 270 H Cancelled (0-200) mg/dl HDL Cholesterol 35 Cancelled 29 mg/dl Cholesterol/HDL Ratio 7.7 H Cancelled (0-5) CBC 11/07/22 Range/Units 05:28 WBC 6.04 (4.8-10.8) K/ul RBC 4.43 L (4.70-6.10) M/uL Hgb 13.6 L (14.0-18.0) g/dl Hct 39.4 L (42.0-52.0) % Plt Count 213 (130-400) K/uL Comprehensive Metabolic Panel 11/07/22 Range/Units 05:28 Sodium 138 (136-145) mmol/L Potassium 3.9 (3.5-5.1) mmol/L Chloride 104 (98-107) mmol/L Carbon Dioxide 27 (21-32) mmol/L BUN 22 (6-23) mg/dl Creatinine 0.86 (0.6-1.4) mg/dl Glucose 104 H (70-99(Fasting)) mg/dl Calcium 9.3 (8.5-10.1) mg/dl Intake and Output 11/06/22 11/07/22 11/07/22 22:59 06:59 14:59 Intake Total 220 / 220 Balance 220 / 220 Intake: Oral 220 / 220 Other: # Unmeasured Voids 1 Weight 96.1 kg 93.8 kg Weight Measurement Method Chair Scale Built in [facility]
--- NOTE | 2022-11-07 12:49 | Discharge Summary ---
Date of Service November 07, 2022 Admission HPI Per Admitting Provider Mr. Blount is a 42 year old male who presented to the [facility] today with complaints of intermittent chest pain that started at 0600 today without waking him from his sleep. He describes it as sharp, tight pain in his anterior chest. He does describe that at times it feels that his heartbeat is not as rhythmic as usual with periods of fluttering. He stated that over the past day or 2 he has noticed some difficulty with word finding both expressively and receptively. He took SL Nitro every 5 minutes x3 doses prior to coming to the ED without relief. In the ED, baby asa was given and he was given a low dose of Fentanyl and Morphine. No ischemic changes noted on EKG. Chest x-ray negative for acute cardiac or pulmonary disease. Last stress test was 08/27 in [place] patient reports normal. Stress echo reviewed in chart from November 2020 which was normal. He has a PMH that includes a NSTEMI in 2017 s/p CHANDU x 3 to RCA, dyslipidemia with statin intolerance, history of tobacco use, ulcerative colitis, and ankylosing spondylitis. Edgardo describes the pain he is having as similar to his NSTEMI in 2017. He denies any close sick contacts recently. He describes that his chest pain has been coming and going ever since he has had his stents placed in 2017. Patient only home medication is a baby aspirin. He does follow with Dr. Gonzalez, Cardiology, in [place] every 6 months. Patient reports he quit smoking more than 5 years ago and does not use alcohol or recreational drug use. Patient does have a medical marijuana card that he does not utilize. Patient denies headache, double or blurry vision, auditory changes, abdominal pain, shortness of breath, reflux symptoms, recent falls, recent trauma. Pt reports intermittent dizziness with ambulation at the start of his day. On exam, he does have anterior chest pain, but not physically reducible on exam. Patient will be admitted for further evaluation and management. Please see A/p for further details. Admission Exam Per Admitting Provider Neuro: AAOx4, PERRLA, no aphagia, memory changes, CNII-XII grossly intact HEENT: head normocephalic, moist mucus membranes CV: S1/S2, (-) M/G/R, (-) edema, cap refill < 3 seconds Resp: Lungs CTA in all howard. On RA GI: Abdomen S/NT/ND, Ax4 bowel sounds, (-) CVA tenderness Musculoskeletal: 5/5 B/L UE strength, 5/5 B/L LE strength. No gait disturbance Skin: (-) rashes , (-) erythema. Psych: euthymic mood Principal Diagnosis Chest pain Discharge Exam GENERAL: Alert and oriented x3. NAD, on RA. HEENT: No pallor, no icterus. Pupils equal, round and reactive to light. Oral mucosa moist. NECK: No JVD, no neck masses. HEART: S1 and S2 heard. Regular rate and rhythm. No murmur, no gallop. RESPIRATORY SYSTEM: Normal AP diameter. No accessory muscle use. No wheezing, no crackles. ABDOMEN: Soft, bowel sounds present, nontender, no distention. CENTRAL NERVOUS SYSTEM: No facial droop. Speech is clear. Obeys simple commands. Moves extremities. EXTREMITIES: No edema, no erythema seen. Discharge Data Allergies Allergy/AdvReac Type Severity Reaction Status Date / Time atorvastatin [From Lipitor] Allergy Intermediate Hives Verified 11/07/20 15:31 shellfish derived Allergy Intermediate Itchy mouth Verified 11/07/20 15:31 varenicline AdvReac Intermediate "MADE ME Verified 11/07/20 15:31 FEEL AWFUL" Consultations 11/06/22 10:29 ED Decision to Admit Stat 11/06/22 11:17 Consult Cardiology Routine Ordered Studies 11/06/22 11:23 MRI Brain [MR brain wo/w con] Routine 11/06/22 15:24 US carotid doppler BI Routine Hospital Course (1) Chest pain: (2) CAD (coronary artery disease): (3) History of non-ST elevation myocardial infarction (NSTEMI): (4) Dyslipidemia: (5) Ulcerative colitis: Plan 42 y/o with intermittent chest pain and reported difficulty with word finding. H?O NSTEMI in 2017 with CHANDU x3. H/O statin intolerance with myalgia and rashes. Only home med is baby ASA. He was managed for the following: Chest Pain: CAD: History of NSTEMI: -2017 CHANDU x 3 to RCA. On baby ASA at home; continue -Normotensive in ED -Follows with [facility] Cards; Dr. Gonzalez Q 6 months -Admitting CXR negative, troponins x2 are negative. Underwent exercise stress echocardiogram which is negative for inducible ischemia. -Patient denies further chest pain, cardiology evaluated him, patient would like to go home. Reported Aphasia: -Expressive and receptive over past 24 hours. -MRI negative for any acute findings. -Patient reports no other neurological issues Dyslipidemia: Statin Intolerance: -Does not take any routine medications; History of statin and zetia intolerance due to myalgias and rash -Lipid panel 2020: total Cholesterol 300 -Lipid panel reviewed, patient needs to be on a long-term medication, patient states that his prescribed PCSK 9 agent, patient to follow-up with his primary c ardiology office upon discharge regarding this medication. Patient aware that he needs to be on lipid-lowering agents for his long-term management of his cardiac status and dyslipidemia. Disposition: PCP: Clay Pena PA-C Code Status: Full Code Patient being discharged to home with following instruction at the point of discharge: Follow-up with your primary care physician within a week time and likely you will need blood test CBC/CMP. For your dyslipidemia, follow-up with your primary cardiology office on Wednesday regarding your Repatha prescription. You will need to be on lipid-lowering agents for your long-term management. Take your medications as prescribed. Home Health Attestation I certify that this patient is under my care and that I, or a physicians sales assistant displays working with me, had a face to-face encounter that meets the home health [id number] encounter requirements with this patient. The encounter with the patient was in whole, or in part, for the following medical condition, which is the primary reason for home health care (list medical condition): I certify that, based on my findings, the following services are medically necessary home health services: My clinical findings support the need for the above services because: Further, I certify that my clinical findings support that this patient is homebound (i.e. absences from home require considerable and taxing effort and are for medical reasons or tenriism services or infrequently or of short duration when for other reasons) because: Certification for Home Health Services: Based on the above findings, I certify that this patient is confined to the home and needs intermittent alf care, physical therapy and/or speech therapy or continues to need occupational therapy. The patient is under my care, and I have initiated the establishment of the plan of care. This patient will be followed by a physician who will periodically review the plan of care. Total Time Total Time Spent Total Time Spent (In Minutes): 45 Discharge Plan Discharge Items Patient Disposition: Home - Self-Care Reason For Visit: CHEST PAIN Discharge Diagnosis: Chest pain Condition on Discharge: Good Activity: Resume your previous activity Non-emergency contact: Primary Care Provider Call non-emergency contact if: you have any medication questions, your symptoms worsen and your temperature is above 101 Follow-up/Referrals: Clay Pena D.O. [Primary Care Provider] - Diet: Heart Healthy and Low Sodium (2gm) Addtl Attending Provider Instructions: Follow-up with your primary care physician within a week time and likely you will need blood test CBC/CMP. For your dyslipidemia, follow-up with your primary cardiology office on Wednesday regarding your Repatha prescription. You will need to be on lipid-lowering agents for your long-term management. Take your medications as prescribed. Pending Studies at Discharge: No Stand-Alone Forms: My [facility], Smoking Cessation Medications and DC Order Prescriptions: Continued aspirin [David Low Dose Aspirin] 81 mg Tablet,Delayed Release (Dr/Ec) 81 mg PO DAILY Discharge Orders: Discharge Order (Routine); Ordered 11/07/22 Ordered By: Fern Malik Admission Data Admit Date/Time: 11/06/22 10:30 Attending Provider: Fern Malik Admit Provider: Nj Covarrubias Primary Care Provider: Clay Pena Other Providers: Nj Covarrubias ; Jaskaran Brown
[2022-11-07 13:26] VITALS: PULSE 79
== END 2022-11-07 13:26 | disposition home or self-care (01) ==
LOC: ED 08:32 → 2N 10:30 → INTOOBSV 10:30 → SUATTDRO 10:30 → 2N 13:43